=== PATIENT | female | born 1990 | race Caucasian/White ===

== ENCOUNTER → 2016-12-27 | Outpatient (CLI) | payer OTHER ==
[2016-12-27 13:13] LABS: THYROID STIMULATING HORMONE 0.231 uIu/ml (0.300-4.500)
== END | disposition home or self-care (01) ==
LOC: C.LAB1850 09:55
PROVIDERS: ATTEND Internal Medicine Endocrinology, Diabetes & Metabolism
DX: E05.90 Thyrotoxicosis, unspecified without thyrotoxic crisis or storm (principal)

== ENCOUNTER → 2017-01-28 | Outpatient (CLI) | payer OTHER ==
[~2017-01-28] VITALS: Ht 156.2 cm; Wt 50.6 kg
[~2017-01-28] MED LIST: BUSP-8 PO; CHECK SCOPOLAMINE PATCH PLACEMENT SCH; LACTATED RINGER'S 1000ML 1,000 ML IV SCH; NICO14DI9 TOP; SCOPOLAMINE 1.5 MG TDSY TD SCH; SPR28 PO; TYLOTC500 PO
[2017-01-28 11:50] VITALS: Ht 156.2 cm; Wt 50.6 kg
--- NOTE | 2017-01-28 12:28 | PAT Medication Instructions ---
Service Date Jan 28, 2017. Current Home Medication List Acetaminophen (Tylenol), 500 MG PO PRN Buspirone Hcl (Buspirone Hcl), 10 MG PO Q6H Ethinyl Estrad/Norgestimate (Sprintec 28), 1 TAB PO QPM Nicotine (Nicotine), 1 PATCH TOP DAILY Medication Instructions For Your Scheduled Surgery - Continue as directed: Nicotine (Nicotine), 1 PATCH TOP DAILY - Take the following medications the morning of surgery with a sip of water OTHERWISE NOTHING TO EAT OR DRINK AFTER MIDNIGHT: Acetaminophen (Tylenol), 500 MG PO PRN (may take if needed up to 4 hours prior to surgery) Buspirone Hcl (Buspirone Hcl), 10 MG PO Q6H - Take the following medications as scheduled the night before surgery: Acetaminophen (Tylenol), 500 MG PO PRN Buspirone Hcl (Buspirone Hcl), 10 MG PO Q6H Ethinyl Estrad/Norgestimate (Sprintec 28), 1 TAB PO QPM If you have any questions please call us at [phone] or [phone] or [phone]
[2017-01-28 13:23] LABS: BASO % 0.3 %; BASO ABS # 0.02 K/uL (0-0.2); EOS % 1.1 %; EOS ABS # 0.09 K/uL (0-0.5); HEMATOCRIT 41.7 % (37-47); HEMOGLOBIN 14.2 g/dL (12.0-16.0); IG# 0.01 K/uL (0.00-0.02); LYMPH % 31.3 %; MEAN CELL VOLUME 91.6 fL (80-100); MEAN CORPUSCULAR HEMOGLOBIN 31.2 pg (25-34); MEAN CORPUSCULAR HGB CONC 34.1 g/dl (32-36); MONO % 6.1 %; MONO ABS # 0.49 K/uL (0.11-0.59); NEUT % 61.1 %; NEUT ABS # 4.87 K/uL (1.4-6.5); PLATELET COUNT 211 K/uL (130-400); RED CELL DISTRIBUTION WIDTH CV 12.7 % (11.5-14.5); RED CELL DISTRIBUTION WIDTH SD 42.6 fL (36.4-46.3); WHITE BLOOD COUNT 7.98 K/uL (4.8-10.8)
[2017-01-28 13:28] LABS: CREATININE 0.6 mg/dl (0.60-1.20); POTASSIUM 4.2 mmol/L (3.5-5.1)
== END | disposition home or self-care (01) ==
LOC: C.LAB 08:00 → EDSTATUS 02-06 12:19
DX: Z01.818 Encounter for other preprocedural examination (principal)

== ENCOUNTER → 2017-02-04 | Outpatient (CLI) | payer OTHER ==
[~2017-02-04] MED LIST changes: -CHECK SCOPOLAMINE PATCH PLACEMENT SCH; -LACTATED RINGER'S 1000ML 1,000 ML IV SCH; -SCOPOLAMINE 1.5 MG TDSY TD SCH
--- NOTE | 2017-02-04 13:51 | DIAGNOSTIC IMAGING REPORT ---
ULTRASOUND-GUIDED FINE-NEEDLE ASPIRATION OF A LEFT THYROID NODULE HISTORY: Left thyroid nodule. COMPARISON: Outside hospital thyroid ultrasound 01/18/2017. PROCEDURE: Written informed consent was obtained. The neck was prepped and draped in the usual sterile fashion. 1% lidocaine was used for local anesthesia. A total of 2 passes using a 25-gauge needle were made through dominant 2.5 cm left thyroid nodule at the request of the referring physician under ultrasound guidance. Specimens were given to the on-site pathologist who determined adequate tissue for diagnosis. The patient tolerated the procedure well. There were no immediate complications. IMPRESSION: Successful ultrasound-guided fine-needle aspiration of a left thyroid nodule. Electronically signed by: Santos Soler M.D. 02/04/2017 1:49 PM Dictated Date/Time: 02/04/2017 1:49 PM
== END | disposition home or self-care (01) ==
LOC: C.ULTR 09:34
PROVIDERS: ATTEND Internal Medicine Endocrinology, Diabetes & Metabolism
DX: E04.1 Nontoxic single thyroid nodule (principal)